=== PATIENT | male | born 1980 | race Caucasian/White ===

== ENCOUNTER 2018-03-21 13:20 | Emergency (ER) | payer BC, MEDICAID ==
[~2018-03-21] VITALS: Ht 195.6 cm; Wt 86.2 kg
[2018-03-21 15:49] VITALS: BP 132/87
== END 2018-03-21 16:12 | disposition home or self-care (01) ==
LOC: ER 13:20
DX: M54.5 Low back pain (principal); G89.29 Other chronic pain; Z76.0 Encounter for issue of repeat prescription; Z88.6 Allergy status to analgesic agent